=== PATIENT | male | born 1990 | race Caucasian/White ===

== ENCOUNTER 2018-01-17 13:15 | Emergency (ER) | payer OTHER ==
[2018-01-17 13:39] VITALS: TEMP 98.5; BMI 29.8
[2018-01-17] MEDS ORDERED: CEPHALEXIN MONOHYDRATE 500 MG CAPSULE (UD) PO ONE (14:05)
[2018-01-17] MEDS ORDERED: ACETAMINOPHEN 500 MG TABLET (FP) PO ONE (14:05)
[2018-01-17] MEDS ORDERED: SULFAMETHOXAZOLE/TRIMETHOPRIM 800MG/160MG D.S. TABLET PO ONE (14:06)
[2018-01-17] MEDS ORDERED: SULFAMETHOXAZOLE/TRIMETHOPRIM 800MG/160MG D.S. TABLET ONE (14:08)
[2018-01-17] MEDS ORDERED: CEPHALEXIN MONOHYDRATE 500 MG CAPSULE (UD) ONE (14:09)
[2018-01-17] MEDS ORDERED: ACETAMINOPHEN 500 MG TABLET (FP) ONE (14:09)
--- NOTE | 2018-01-17 14:09 | PDOC ---
History of Present Illness - General Chief Complaint: Abscess Boil Stated Complaint: LEFT CHEST ABSCESS Time Seen by Provider: 01/17/18 13:37 - History of Present Illness Initial Comments: 01/17/18 14:23 27yo male with hx of anxiety and depression and add presents to the ED ambulatory c/o an abscess to L chest wall. Pt states he shaves his chest and noticed the redness and swelling this AM. Pt denies f/c. No enlarged lymph nodes. No chest pain, no sob. No abd pain. No n/v/d. No dysuria. C/o itching to L hand along the pinky. Pt denies paresthesias or tingling. No trauma. No swelling or redness. No other complaints. Pmhx: anxiety, depression, add pshx: denies allergies: nkda Past History - Past Medical History Allergies/Adverse Reactions: Allergies Allergy/AdvReac Type Severity Reaction Status Date / Time No Known Allergies Allergy Verified 11/18/15 11:40 Home Medications: Ambulatory Orders Dextroamphetamine/Amphetamine [Adderall Xr 30 mg Capsule] 30 mg PO BID 06/23/15 Cephalexin Monohydrate [Keflex -] 500 mg PO Q6H #40 capsule 01/17/18 Clonazepam [Klonopin] 1 mg PO BID PRN 01/17/18 Fluoxetine HCl [Prozac] 40 mg PO HS 01/17/18 Sulfamethoxazole/Trimethoprim [Bactrim Ds -] 2 tab PO BID #40 tablet 01/17/18 COPD: No Psychiatric Problems: Yes (ANXIETY) - Surgical History Abdominal Surgery: Yes (hernia age 4) - Immunization History Td Vaccination: No Immunization Up to Date: Yes - Suicide/Smoking/Psychosocial Hx Smoking Status: Yes Smoking History: Current every day smoker Have you smoked in the past 12 months: Yes Number of Cigarettes Smoked Daily: 0 If you are a former smoker, when did you quit?: 1 yr Information on smoking cessation initiated: Yes 'Breaking Loose' booklet given: 02/20/14 Hx Alcohol Use: No Drug/Substance Use Hx: No Substance Use Type: None Review of Systems - Review of Systems Able to Perform ROS?: Yes Is the patient limited Maltese proficient: No Constitutional: No: Chills, Fever HEENTM: No: Eye Pain, Nose Pain, Nose Congestion, Throat Pain Respiratory: No: Cough, Shortness of Breath Cardiac (ROS): Yes: Other (chest wall redness and induration). No: Chest Pain, Edema, Lightheadedness, Palpitations ABD/GI: No: Diarrhea, Nausea, Vomiting, Abdominal cramping : No: Burning, Dysuria Musculoskeletal: No: Back Pain, Neck Pain Integumentary: Yes: Erythema (L chest wall erythema/induration) Neurological: No: Headache, Numbness, Paresthesia, Seizure, Tingling, Weakness, Ataxia Psychiatric: Yes: Anxiety. No: Depression All Other Systems: Reviewed and Negative *Physical Exam - Vital Signs Last Vital Signs Temp Pulse Resp BP Pulse Ox 98.5 F 100 H 18 156/112 H 100 01/17/18 13:31 01/17/18 13:31 01/17/18 13:31 01/17/18 13:31 01/17/18 13:31 - Physical Exam General Appearance: Yes: Nourished, Appropriately Dressed, Other (anxious) HEENT: positive: EOMI, Normal ENT Inspection, Normal Voice Neck: positive: Supple Respiratory/Chest: positive: Lungs Clear, Normal Breath Sounds, Other (L chest wall erythema and small area of induration - overall size is 4x6cm, indurated area is about quarter size, no fluctuance). negative: Respiratory Distress Cardiovascular: positive: Regular Rhythm, S1, S2, Tachycardia, Other (anxious) Gastrointestinal/Abdominal: positive: Normal Bowel Sounds, Flat, Soft. negative : Tender, Guarding, Rebound, Tenderness Musculoskeletal: positive: Normal Inspection, Other (negative tinels and finklesteins, brisk cap refill, pulses intact, sensation intact, muscle strength intact to hands). negative: CVA Tenderness Extremity: positive: Normal Capillary Refill, Normal Inspection, Normal Range of Motion, Other (dry skin to hands). negative: Calf Tenderness Integumentary: positive: Erythema (L chest wall with area of induration - no fluctuance, no crepitus) Neurologic: positive: Fully Oriented, Alert, Motor Strength 5/5, Other (anxious) Medical Decision Making - Medical Decision Making 01/17/18 14:39 a/p: 27yo male presents with L chest wall cellulitis -most likely from shaving -area of induration without fluctuance -dry skin to L hand -area of erythema was outlined with a skin marking pen, will give keflex and bactrim, recommend warm compresses to the area -[facility] send rx [facility] -discussed all reasons to return to the ED and need for a wound check in 2 days. discussed return to the ED if the area of erythema expands outside the marked area -discussed f/c and return to the ED -will give outpt abx and follow up with his PMD -answered all questions, pt and mother at the bedside verbalize understanding of all instructions repeat bp improved 01/17/18 14:41 pt very anxious in the ED *DC/Admit/Observation/Transfer Diagnosis at time of Disposition: Cellulitis of chest wall - Discharge Dispostion Disposition: HOME Condition at time of disposition: Stable Decision to Admit order: No - Prescriptions Prescriptions: Cephalexin Monohydrate [Keflex -] 500 mg PO Q6H #40 capsule Sulfamethoxazole/Trimethoprim [Bactrim Ds -] 2 tab PO BID #40 tablet - Referrals Referrals: Monroe Garduno MD [Primary Care Provider] - - Patient Instructions Printed Discharge Instructions: DI for Cellulitis -- Adult Additional Instructions: Please apply warm compresses to the chest wall. If you develop fevers or chills please return to the ED. Please take all antibiotics as prescribed. Please make a follow up appointment with your PMD for a wound check in 2 days. If the cellulitis extends outside the outline area please return to the ED. - Post Discharge Activity
[2018-01-17 14:21] VITALS: BP 147/100; PULSE 106
== END 2018-01-17 14:20 | disposition home or self-care (01) ==
LOC: FER 13:15
DX: L02.213 Cutaneous abscess of chest wall (principal); F17.210 Nicotine dependence, cigarettes, uncomplicated; F90.9 Attention-deficit hyperactivity disorder, unspecified type; F41.9 Anxiety disorder, unspecified; F32.9 Major depressive disorder, single episode, unspecified
CPT/HCPCS: 99282-25

== ENCOUNTER 2018-12-20 15:29 | Emergency (ER) | payer OTHER ==
[2018-12-20 15:43] VITALS: BP 134/92; PULSE 100; TEMP 98.5; BMI 31.2
[2018-12-20 16:45] LABS: BASO % 0.5 % (0-2.0); EOS % 2.7 % (0-4.5); HEMATOCRIT 52.6 % (35.4-49); HEMOGLOBIN 17.7 GM/dl (11.7-16.9); LYMPH % 31.5 % (8-40); MCH 30.6 pg (25.7-33.7); MCHC 33.6 g/dl (32.0-35.9); MEAN CELL VOLUME 91.1 fl (80-96); MEAN PLT VOLUME 8.4 fl (7.5-11.1); MONO % 6.4 % (3.8-10.2); NEUT % 58.9 % (42.8-82.8); PLATELET COUNT 292 K/MM3 (134-434); RBC 5.77 M/mm3 (4.00-5.60); RDW 13.1 % (11.9-15.9)
[2018-12-20 16:51] LABS: ALBUMIN 4.3 g/dl (3.4-5.0); BILIRUBIN,TOTAL 0.6 mg/dl (0.2-1); CALCIUM 8.5 mg/dl (8.5-10); POTASSIUM 4.5 mmol/L (3.5-5.1); TOT PROT 7.5 g/dl (6.4-8.2)
--- NOTE | 2018-12-20 17:14 | PDOC ---
Documentation entered by Jeremiah Branch SCRIBE, acting as scribe for Cheo Hines MD. Cheo Hines MD: This documentation has been prepared by the Jose Carlos cartagena Aiswarya, SCRIBE, under my direction and personally reviewed by me in its entirety. I confirm that the documentation accurately reflects all work, treatment, procedures, and medical decision making performed by me. History of Present Illness - General Chief Complaint: Difficulty with Vision Stated Complaint: BLURRY VISION,JERKS ON FACE FOR A FEW EEKS Time Seen by Provider: 12/20/18 15:41 - History of Present Illness Initial Comments: 12/20/18 17:19 The patient is a 28 year old male, with a significant PMH of anxiety, depression, ADHD, who presents to the emergency department with frequent blurry visions and headaches that began approximately 3 weeks ago. The patient states he endorses associated symptoms of lightheadedness, fatigue, blurry vision especially when looking at a screen. He also notes varied stages of folliculitis on the upper extremity. The patient denies chest pain, shortness of breath, headache and dizziness. Denies fever, chills, nausea, vomit, diarrhea and constipation. Denies dysuria, frequency, urgency and hematuria. Allergies: NKDA Past surgical history: hernia Social history: Current everyday smoker PCP: None reported Past History - Past Medical History Allergies/Adverse Reactions: Allergies Allergy/AdvReac Type Severity Reaction Status Date / Time No Known Allergies Allergy Verified 12/20/18 15:44 Home Medications: Ambulatory Orders Dextroamphetamine/Amphetamine [Adderall Xr 30 mg Capsule] 30 mg PO BID 06/23/15 Alprazolam [Xanax] 1 mg PO BID 12/20/18 Sertraline HCl [Zoloft -] 50 mg PO DAILY 12/20/18 COPD: No Psychiatric Problems: Yes (ANXIETY,depression,ADHD,OCD,panic attack) - Surgical History Abdominal Surgery: Yes (hernia) - Immunization History Td Vaccination: No Immunization Up to Date: Yes - Psycho Social/Smoking Cessation Hx Smoking Status: Yes Smoking History: Current every day smoker Have you smoked in the past 12 months: Yes Number of Cigarettes Smoked Daily: 0 If you are a former smoker, when did you quit?: 1 yr Information on smoking cessation initiated: Yes 'Breaking Loose' booklet given: 12/23/14 Hx Alcohol Use: No Drug/Substance Use Hx: No Substance Use Type: None Review of Systems - Review of Systems Able to Perform ROS?: Yes Comments:: 12/20/18 17:20 GENERAL/CONSTITUTIONAL: No fever or chills. HEAD, EYES, EARS, NOSE AND THROAT: No change in vision. No ear pain or discharge. No sore throat. CARDIOVASCULAR: No chest pain or shortness of breath. RESPIRATORY: No cough, wheezing, or hemoptysis. GASTROINTESTINAL: No nausea, vomiting, diarrhea or constipation. GENITOURINARY: No dysuria, frequency, or change in urination. MUSCULOSKELETAL: No joint or muscle swelling or pain. No neck or back pain. SKIN: No rash NEUROLOGIC: No, vertigo, loss of consciousness, or change in strength/sensation. ENDOCRINE: No increased thirst. No abnormal weight change. HEMATOLOGIC/LYMPHATIC: No anemia, easy bleeding, or history of blood clots. ALLERGIC/IMMUNOLOGIC: No hives or skin allergy. Constitutional: No: Chills, Fever HEENTM: No: Double Vision, Throat Swelling, Difficulty Swallowing Respiratory: No: Cough, Shortness of Breath Cardiac (ROS): No: Chest Pain, Edema, Lightheadedness, Syncope ABD/GI: No: Diarrhea, Vomiting Neurological: Yes: Headache. No: Paresthesia, Weakness, Ataxia Psychiatric: Yes: Anxiety, Depression All Other Systems: Reviewed and Negative *Physical Exam - Vital Signs Last Vital Signs Temp Pulse Resp BP Pulse Ox 98.5 F 100 H 19 134/92 100 12/20/18 15:31 12/20/18 15:31 12/20/18 15:31 12/20/18 15:31 12/20/18 15:31 - Physical Exam Comments: 12/20/18 17:20 GENERAL: The patient is awake, alert, and fully oriented, in no acute distress. HEAD: Normal with no signs of trauma. EYES: Pupils equal, round and reactive to light, extraocular movements intact, sclera anicteric, conjunctiva clear with no pallor. ENT: Ears normal, nares patent, oropharynx clear without exudates. Moist mucous membranes. NECK: Normal range of motion, supple without lymphadenopathy, JVD, or masses. LUNGS: Breath sounds equal, clear to auscultation bilaterally. No wheeze/ crackles. HEART: Regular rate and rhythm, normal S1 and S2 without murmur or rub. EXTREMITIES: Normal range of motion, no edema. No clubbing or cyanosis. No cords, erythema, or tenderness. PSYCH: +anxious. No pressured speech. SKIN: +Scattered 1 mm follicitis of varied stages without cellulitis NEURO: Mental status: The patient is alert and oriented x3. Cranial nerves: Cranial nerves II through XII are intact Motor: The upper extremities are 5 over 5 in all muscle groups. The lower extremities are 5 over 5 in all muscle groups. No pronator drift. Sensation: Sensation is intact to light touch throughout. Cerebellar: [id number] is normal in both upper extremities. Heel-knee- crouch is normal in both lower extremities. Reflexes: 2+ and symmetric in the upper and lower extremities. Gait: Normal. Heel and toe walking are normal. Tandem gait is normal. Heart Score/ECG Review #1 ECG reviewed & interpreted by me at: 16:35 General ECG Interpretation: Sinus Rhythm, Normal Rate (90), Normal Intervals ( qtc 423), No acute ischemic changes ED Treatment Course - LABORATORY CBC & Chemistry Diagram: 12/20/18 16:20 12/20/18 16:20 - ADDITIONAL ORDERS Additional order review: 12/20/18 16:20 RBC 5.77 H MCV 91.1 MCHC 33.6 RDW 13.1 MPV 8.4 Neutrophils % 58.9 Lymphocytes % 31.5 Monocytes % 6.4 Eosinophils % 2.7 Basophils % 0.5 - RADIOLOGY Radiology Studies Ordered: Category Date Time Status HEAD CT WITHOUT CONTRAST [CT] Stat CT Scan 12/20/18 16:03 Taken Medical Decision Making - Medical Decision Making 12/20/18 16:52 A portion of this note was documented by scribe services under my direction. I have reviewed the details of the note, within reason, and agree with the documentation with the following case summary and management plan written by me. 28-year-old male with history of anxiety and depression, possible narcolepsy in the past maintained on Zoloft (recently switched from Prozac 4 months ago) and Adderall presents now with about 1 month of fleeting several second episodes of blurry vision while staring at a screen followed by a muscle twitch and mild periorbital headache. The episodes occur several times a day, mostly at work, never associated with seizure activity or actual syncope. no acute depression ideations or hallucinations. denies drugs/intox. admits to self-lowering his adderall dose to twice daily instead of tid. vss exam nonfocal 28-year-old male with nonspecific muscle twitches, vague headaches without red flags on history or physical exam. Question whether he has underlying muscular tics that are undertreated by his self lowered Adderall dose, question side effects from medications, presentation is not consistent with seizures or syncope. Given his complaint of headache and increased fatigue, check basic labs and head CT. CT head normal EKG normal Labs including CBC and chemistries are within normal limits, TSH sent and pending Stable for discharge, family at bedside, understands return criteria. He will follow-up with his psychiatrist, has a PCP that he can schedule an appointment with. Discharge - Discharge Information Problems reviewed: Yes Clinical Impression/Diagnosis: Muscle twitch, Anxiety Condition: Stable Disposition: HOME - Follow up/Referral - Patient Discharge Instructions Patient Printed Discharge Instructions: DI for Anxiety -- Adult Additional Instructions: Activity as tolerated. Stay hydrated. Blood tests, an EKG, and a CT head showed no acute abnormalities today. A thyroid test is still pending but should be resulted by . Continue your medications as previously prescribed by your physician. Speak to your psychiatrist about whether dosing or medication adjustments are needed. You should follow up with your primary doctor as soon as possible regarding today's emergency department visit. Return to the emergency department for any new or concerning symptoms, particularly passing out, seizure activity, persistent or intolerable headaches , fever/chills, severe depression or anxiety. - Post Discharge Activity
--- NOTE | 2018-12-21 09:43 | EKG ---
Test Reason : Blood Pressure : / mmHG Vent. Rate : 090 BPM Atrial Rate : 090 BPM P-R Int : 142 ms QRS Dur : 092 ms QT Int : 346 ms P-R-T Axes : 041 017 021 degrees QTc Int : 423 ms NORMAL SINUS RHYTHM NORMAL ECG WHEN COMPARED WITH ECG OF 01-AUG-2015 02:41, NO SIGNIFICANT CHANGE WAS FOUND Confirmed by MATTEO SUAREZ MD ([id number]) on 12/21/2018 9:43:16 AM Referred By: DR ALSTON Confirmed By:MATTEO SUAREZ MD
== END 2018-12-20 17:23 | disposition home or self-care (01) ==
LOC: FER 15:29
DX: R25.3 Fasciculation (principal); F41.9 Anxiety disorder, unspecified
CPT/HCPCS: 36415; 70450-TC; 80053; 84443; 85025; 93005; 99283-25

== ENCOUNTER 2019-10-29 12:54 | Emergency (ER) | payer OTHER ==
[2019-10-29 13:01] VITALS: BP 138/91; PULSE 104; TEMP 98.1; BMI 29.8
--- NOTE | 2019-10-29 13:01 | PDOC ---
History of Present Illness - General Chief Complaint: Redness To Affected Area Stated Complaint: right side of nose pimple pop Time Seen by Provider: 10/29/19 12:58 History Source: Patient Exam Limitations: No Limitations - History of Present Illness Initial Comments: 10/29/19 13:00 HPI 29 year old male, with a significant PMH of anxiety, depression, ADHD, who presents to the emergency department with right facial redness and swelling after popping pimple on right side of his nose. he admits to having long standing facial redness and bad habit of popping pimples. there was pimple head there yesterday, which he popped and subsequently pus came out of his nose. Immediate relief. no additional analgesia needed. Denies fever, chills, chest pain, SOB, sore throat, ear pain/eye pain, visual or hearing disturbances, palpitation, dizziness, weakness, N, V, D, abdominal pain, bladder and bowel problems, focal weakness/paresthesias, leg swelling/pain, rash. Allergies: None Past Medical History/PSH: as above Social history: Lives with family. No tobacco, ETOH or drug use. Meds: as documented in EMR Family history: noncontributory Review of systems Constitutional: no fevers or chills. No weakness HEENT: no headache or dizziness. No congestion. No visual/hearing disturbances. no sore throat. no eye pain or redness. no ear pain. no epistaxis. CVS: no cp or syncope. Resp: no sob. No cough. Gastrointestinal: no abdominal pain, nausea, vomiting, diarrhea. MUSCULOSKELETAL: No joint pain and swelling. No neck or back pain. SKIN: +pimple, facial redness and swelling, no discharge, no rash. No wounds. Hematologic: no easy bruising/bleeding. NEUROLOGIC: No headache, dizziness, LOC or altered mental status. No weakness, numbness or tingling. Psych: +history of anxiety, depression and ADHD Allergic/Immunologic: no allergies All other systems reviewed and negative, or as documented in HPI. Physical exam General: Well appearing, awake and alert, NAD. HEENT: NCAT, PERRL, EOMI, clear conjunctiva, anicteric, moist mucus membranes, clear oropharynx, no oral lesions.. +right cheek/facial erythema, not raised, nontender, no warmth. faint popped pimple at the nasolabial edge nares clear and patent. airway patent no sinus tenderness to palpation. Neck: neck supple, FROM Resp: CTAB, normal and even respirations, no respiratory distress CVS: RRR, no murmurs, 2+ peripheral pulses throughout, no peripheral edema Abdomen: soft, NTND, no rebound or guarding. MSK: no edema, HALL x4, ROM intact. No clubbing or cyanosis. normal bulk and tone. Neuro: alert, oriented appropriately; no focal neurologic deficits, CN II to XII grossly intact, speech clear Psych: Calm and cooperative Skin: warm and well perfused, cap refill <2 sec, normal color, no rash or skin discoloration. +right facial /cheek erythema, nontender. small popped pimple residue on the nasolabial fold. 10/29/19 13:15 10/29/19 13:20 10/29/19 13:52 Past History - Medical History Allergies/Adverse Reactions: Allergies Allergy/AdvReac Type Severity Reaction Status Date / Time No Known Allergies Allergy Verified 12/20/18 15:44 Home Medications: Ambulatory Orders Dextroamphetamine/Amphetamine [Adderall Xr 30 mg Capsule] 30 mg PO BID 06/23/15 Alprazolam [Xanax] 1 mg PO BID 12/20/18 Sertraline HCl [Zoloft -] 50 mg PO DAILY 12/20/18 Cephalexin Monohydrate [Keflex -] 500 mg PO Q8H #20 capsule 10/29/19 Mupirocin Ointment [Bactroban 2% Ointment -] 1 applic TP TID 7 Days #1 tube 10/29/19 COPD: No Psychiatric Problems: Yes (ANXIETY,depression,ADHD,OCD,panic attack) - Surgical History Abdominal Surgery: Yes (hernia) - Immunization History Td Vaccination: No Immunization Up to Date: Yes - Psycho-Social/Smoking History Smoking Status: Yes Smoking History: Current every day smoker Have you smoked in the past 12 months: Yes Number of Cigarettes Smoked Daily: 0 If you are a former smoker, when did you quit?: 1 yr 'Breaking Loose' booklet given: 02/20/14 Medical Decision Making - Medical Decision Making 10/29/19 13:18 Vital Signs Temp Pulse Resp BP Pulse Ox 98.1 F 104 H 18 138/91 100 10/29/19 12:56 10/29/19 12:56 10/29/19 12:56 10/29/19 12:56 10/29/19 12:56 vitals with mild tachy, anxious no fever, no systemic findings. normal respirations. no e/o to suggest acute sinusitis. no e/o orbital cellulitis doubt cavernous sinus thrombosis neuro intact CN II to XII grossly intact, speech clear. no further I&D needed. folliculitis treatment no e/o erysipelas mupirocin topically and keflex tid x 7 days monitor for worsening symptoms/s/s infection told to avoid popping pimples and touching the face for risk of spreading infection. pt and family verbalized understanding of impression and plan, agreeable 10/29/19 13:54 10/29/19 13:55 10/29/19 13:55 Discharge - Discharge Information Problems reviewed: Yes Clinical Impression/Diagnosis: Folliculitis, Facial cellulitis Condition: Stable Disposition: HOME - Admission No - Additional Discharge Information Prescriptions: Mupirocin Ointment [Bactroban 2% Ointment -] 1 applic TP TID 7 Days #1 tube Cephalexin Monohydrate [Keflex -] 500 mg PO Q8H #20 capsule - Follow up/Referral Referrals: [facility] [Provider Group] [facility] [Provider Group] - Patient Discharge Instructions Patient Printed Discharge Instructions: DI for Cellulitis -- Adult, DI for Folliculitis Additional Instructions: 1) Please follow-up with your primary care doctor in the next 1-2 days. Please call tomorrow for for any urgent issues. you most likely have a folliculitis/cellulitis of your face. this is to be treated with antibiotics 2) You were given a copy of the tests performed today. Please bring the results with you and review them with your primary care doctor. 3) If you have any worsening of symptoms or any other concerns please return to the ED immediately. Return if worsening symptoms including fevers, headache, vomiting, visual or hearing disturbances, eye pain/vision loss, bleeding, difficulty seeing/opening or closing eyes, throat discomfort, abdominal pain, chest pain, shortness of breath, syncope, dehydration, inability to take things by mouth/vomiting, altered mental status, or worsening concerning symptoms. 4) Please continue taking your home medications as directed. your medications on discharge include Keflex three times a day x 1 week and topical mupirocin three times a day to the face/affected side.. side effects may include upset stomach, abdominal pain, vomiting, or diarrhea. do not drink alcohol with your medications. Stay well hydrated and rest adequately. Make an appointment. If you cannot follow-up with your primary care doctor please return to the ED - Post Discharge Activity
[2019-10-29] MEDS ORDERED: CEPHALEXIN MONOHYDRATE 500 MG CAPSULE (UD) PO ONE (13:20)
[2019-10-29] MEDS ORDERED: CEPHALEXIN MONOHYDRATE 500 MG CAPSULE (UD) ONE (13:22)
[2019-11-01] MEDS ORDERED: LOCK ITEM NR ONE (07:53)
[2019-11-08] MEDS ORDERED: LOCK ITEM NR ONE (08:16)
== END 2019-10-29 13:30 | disposition home or self-care (01) ==
LOC: FER 12:54
DX: L66.2 Folliculitis decalvans (principal); L03.211 Cellulitis of face
CPT/HCPCS: 99283-25

== ENCOUNTER 2019-10-30 09:04 | Emergency (ER) | payer OTHER ==
[2019-10-30 09:12] VITALS: BP 154/89; PULSE 99; TEMP 97.5; BMI 29.8
--- NOTE | 2019-10-30 09:24 | PDOC ---
History of Present Illness - General Chief Complaint: Redness To Affected Area Stated Complaint: REDNESS TO SIDE OF NOSE, "PUS FR EYES/NOSE" Time Seen by Provider: 10/30/19 09:21 - History of Present Illness Initial Comments: HPI: 29yo M with PMH of anxiety, depression, ADHD presenting with skin complaint. Yesterday, patient noticed a pimple along his right nasolabial fold and squeezed the area with his fingers. Since that time he has had redness and tenderness in the area of the right side of his face next to his nose. Patient reports he was seen at this ED yesterday for same complaint, but presents again today because he noticed "pus" draining from the area, as well as from his eye. Patient also reports a strange taste in his mouth such that he believes pus may have drained from that area as well. The pus is yellow and watery. Has not yet picked up his prescription from the pharmacy because it was closed. Denies trouble swallowing or sore throat. No congestion or drainage from the nostril. Patient reports feeling mildly anxious which he attributes to his history of anxiety. Denies fever or chills. PCP: none ROS: Constitutional: no fever, no chills HEENT: no throat pain, no dysphagia Cardiovascular: no chest pain, no palpitations Respiratory: no cough, no shortness of breath Gastrointestinal: no abdominal pain, no nausea Genitourinary: no dysuria, no hematuria Musculoskeletal: no myalgia, no arthralgia Skin: +rash, +discharge Neurologic: no headache, no weakness Psych: no agitation, +anxiety PE: General: Awake, alert, and fully oriented, in no acute distress Head: No signs of trauma Eyes: EOMI, sclera anicteric ENT: Moist mucus membranes, uvula midline, no oral mass/lesion Neck: Normal ROM, supple Lungs: Lungs clear, Normal breath sounds Cardio: Regular rhythm, S1 and S2 present Abdomen: Soft, nontender Extremities: Normal range of motion, Distal pulses present Skin: Area of erythema along right nasiolabial fold, mildly tender, with no fluctuance. unable to express any discharge upon palpation Neurologic: Cranial nerves II through XII grossly intact. Normal speech ED Course/MDM: DDX including but not limited to cellulitis, abscess, sinusitis, inflammation Clinically, the area is consistent with an early celluitis: mildly erythematous, tender Doubt abscess as there is no fluctuance appreciated Significant discharge is not appreciated on exam, low suspicion for sinusitis Patient only took one dose of abx, so this is not failed outpatient therapy To continue and finish course of keflex Patient requested prescription to be sent to different pharmacy; sent accordingly Referral to primary care physician as patient does not have one Return precautions Stable for discharge 10/30/19 09:47 Past History - Medical History Allergies/Adverse Reactions: Allergies Allergy/AdvReac Type Severity Reaction Status Date / Time No Known Allergies Allergy Verified 10/30/19 09:06 Home Medications: Ambulatory Orders Dextroamphetamine/Amphetamine [Adderall Xr 30 mg Capsule] 30 mg PO BID 06/23/15 Alprazolam [Xanax] 2 mg PO BID 12/20/18 Cephalexin Monohydrate [Keflex -] 500 mg PO Q8H #20 capsule 10/29/19 Mupirocin Ointment [Bactroban 2% Ointment -] 1 applic TP TID 7 Days #1 tube 10/29/19 Cephalexin Monohydrate [Keflex -] 500 mg PO Q8H #20 capsule 10/30/19 Mupirocin Ointment [Bactroban 2% Ointment -] 1 applic TP TID #1 tube 10/30/19 COPD: No Psychiatric Problems: Yes (ANXIETY,depression,ADHD,OCD,panic attack) - Surgical History Abdominal Surgery: Yes (hernia) - Immunization History Td Vaccination: No Immunization Up to Date: Yes - Psycho-Social/Smoking History Smoking Status: Yes Smoking History: Never smoked Have you smoked in the past 12 months: No Number of Cigarettes Smoked Daily: 0 If you are a former smoker, when did you quit?: 1 yr Information on smoking cessation initiated: Yes 'Breaking Loose' booklet given: 02/20/14 - Substance Abuse Hx (Audit-C & DAST Scrn) How often the patient has a drink containing alcohol: Never Score: In Men: 4 or > Positive; In Women: 3 or > Positive: 0 Screen Result (Pos requires Nsg. Audit-10AR): Negative In the last yr the pt used illegal drug/Rx for NonMed reason: No Score: Yes response is considered Positive: 0 Screen Result (Positive result requires Nsg. DAST-10): Negative *Physical Exam - Vital Signs Last Vital Signs Temp Pulse Resp BP Pulse Ox 97.5 F L 99 H 18 154/89 98 10/30/19 09:05 10/30/19 09:05 10/30/19 09:05 10/30/19 09:05 10/30/19 09:05 Discharge - Discharge Information Problems reviewed: Yes Clinical Impression/Diagnosis: Cellulitis Qualifiers: Site of cellulitis: face Qualified Code(s): L03.211 - Cellulitis of face Condition: Stable Disposition: HOME - Additional Discharge Information Prescriptions: Mupirocin Ointment [Bactroban 2% Ointment -] 1 applic TP TID #1 tube Cephalexin Monohydrate [Keflex -] 500 mg PO Q8H #20 capsule - Follow up/Referral Referrals: [facility] [place] [facility] [place] [facility] [Provider Group] - Patient Discharge Instructions Patient Printed Discharge Instructions: DI for Cellulitis -- Adult Additional Instructions: You came to the emergency department because of an infection on the right side of your face. Prescriptions sent to your pharmacy. Take as instructed. Follow-up with a primary care provider this week to discuss this ED visit and to further evaluate your symptoms. Your workup is not complete until you do so. You have been referred to the [facility] in case you do not have a primary care doctor. Call and make an appointment at the number provided. Immediate medical attention is required if you have : fevers/chills, redness or hardness around the wound, pain or tenderness, red streaks, fever or chills. If you think you are having an emergency, call for emergency medical services or present to the emergency department right away. - Post Discharge Activity
--- NOTE | 2019-10-30 09:41 | PDOC ---
Attending Attestation - Resident Resident Name: Catie Gauthier - ED Attending Attestation I have performed the following: I have examined & evaluated the patient, The case was reviewed & discussed with the resident, I agree w/resident's findings & plan, Exceptions are as noted - HPI HPI: 10/30/19 09:40 29y M presnting with complaint of facial redness/swelling on right side of his nose. pt had a pimple that he popped yesterday, and noticed some redness/flaking skin - he had come to the ED for evaluation and was given rx for abx and mupruicin, however he was unable to fill the rx. he comes in today due to seeing some yellowish discharge. denies any significant pain, fever/chills, vision changes/eye pain, difficulty swallowing. - Physicial Exam PE: 10/30/19 09:56 Exam: No acute distress ENT: EOMI, mild erythema on R nasolabial fold without induration/tenderness/fluctuance, +flaking skin, normal voice/jaw movement, no discharge appreicated - Medical Decision Making 10/30/19 09:56 suspect irritation with mild erythema, possibly early cellulitis vs impetigo pt has rx for keflex / mupricin will dc with pmd fu, return precaution swere discussed for worsening redness or systemic symtmos or other concerns. Discharge - Discharge Information Problems reviewed: Yes Clinical Impression/Diagnosis: Cellulitis Qualifiers: Site of cellulitis: face Qualified Code(s): L03.211 - Cellulitis of face Condition: Stable Disposition: HOME - Additional Discharge Information Prescriptions: Mupirocin Ointment [Bactroban 2% Ointment -] 1 applic TP TID #1 tube Cephalexin Monohydrate [Keflex -] 500 mg PO Q8H #20 capsule - Follow up/Referral [place] [facility] [place] [facility] [place]] - Patient Discharge Instructions Patient Printed Discharge Instructions: DI for Cellulitis -- Adult Additional Instructions: You came to the emergency department because of an infection on the right side of your face. Prescriptions sent to your pharmacy. Take as instructed. Follow-up with a primary care provider this week to discuss this ED visit and to further evaluate your symptoms. Your workup is not complete until you do so. You have been referred to the [facility] in case you do not have a primary care doctor. Call and make an appointment at the number provided. Immediate medical attention is required if you have : fevers/chills, redness or hardness around the wound, pain or tenderness, red streaks, fever or chills. If you think you are having an emergency, call for emergency medical services or present to the emergency department right away. - Post Discharge Activity
== END 2019-10-30 10:05 | disposition home or self-care (01) ==
LOC: FER 09:04
DX: L03.211 Cellulitis of face (principal)
CPT/HCPCS: 99282-25

== ENCOUNTER 2019-11-13 12:38 | Emergency (ER) | payer OTHER ==
[2019-11-13 12:45] VITALS: BP 135/84; PULSE 107; TEMP 98; BMI 29.9
[2019-11-13] MEDS ORDERED: ACETAMINOPHEN 325 MG TABLET (FP) PO ONE (13:02)
--- NOTE | 2019-11-13 13:03 | PDOC ---
History of Present Illness - General Chief Complaint: Chest Pain Stated Complaint: CHEST "SPASM" - History of Present Illness Initial Comments: 11/13/19 13:03 29 year old man with a history of anxiety and ADHD who presents with chest "spasms" that have been occurring since this morning. He denies chest pain or shortness of breath. Denies any family history of early heart attack or sudden cardiac . He states that he took his adderall and drank an energy drink this morning. He endorses a history of fast heart rates. ROS GENERAL/CONSTITUTIONAL: No fever or chills. No weakness. HEAD, EYES, EARS, NOSE AND THROAT: No change in vision. No ear pain or discharge. No sore throat. CARDIOVASCULAR: No chest pain or shortness of breath + chest " spasm" RESPIRATORY: No cough, wheezing, or hemoptysis. GASTROINTESTINAL: No nausea, vomiting, diarrhea or constipation. GENITOURINARY: No dysuria, frequency, or change in urination. MUSCULOSKELETAL: No joint or muscle swelling or pain. No neck or back pain. SKIN: No rash NEUROLOGIC: No headache, vertigo, loss of consciousness, or change in strength/sensation. ENDOCRINE: No increased thirst. No abnormal weight change HEMATOLOGIC/LYMPHATIC: No anemia, easy bleeding, or history of blood clots. ALLERGIC/IMMUNOLOGIC: No hives or skin allergy. PE GENERAL: Awake, alert, and fully oriented, in no acute distress HEAD: No signs of trauma, normocephalic, atraumatic EYES: EOMI, sclera anicteric, conjunctiva clear ENT: oropharynx clear without exudates. Moist mucosa NECK: Normal ROM, supple LUNGS: No distress, speaks full sentences, clear to auscultation bilaterally HEART: Regular rate and rhythm, normal S1 and S2, no murmurs, rubs or gallops, peripheral pulses normal and equal bilaterally. ABDOMEN: Soft, nontender, No guarding, no rebound. No masses EXTREMITIES : Normal inspection, Normal range of motion, no edema. No clubbing or cyanosis. NEUROLOGICAL: Cranial nerves II through XII grossly intact. Normal speech, normal gait, no focal sensorimotor deficits SKIN: Warm, Dry, normal turgor, no rashes or lesions noted Assessment and Plan 29 year old man with a history of anxiety and ADHD who presents with chest "spasms" that have been occurring since this morning. Less consistent with ACS, if EKG wnl will pursue bloodwork. EKG sinus at 116bpm pain control Patient feels reassured and desires to go home HR decreased to low 100s D/C w/ PCP f/u Kassi Bruno, PGY3 Emergency Medicine Past History - Medical History Allergies/Adverse Reactions: Allergies Allergy/AdvReac Type Severity Reaction Status Date / Time No Known Allergies Allergy Verified 11/13/19 12:39 Home Medications: Ambulatory Orders Dextroamphetamine/Amphetamine [Adderall Xr 30 mg Capsule] 30 mg PO BID 06/23/15 Alprazolam [Xanax] 2 mg PO BID 12/20/18 COPD: No Psychiatric Problems: Yes (ANXIETY,depression,ADHD,OCD,panic attack) - Surgical History Abdominal Surgery: Yes (hernia) - Immunization History Td Vaccination: No Immunization Up to Date: Yes - Psycho-Social/Smoking History Smoking Status: Yes Smoking History: Never smoked Have you smoked in the past 12 months: No Number of Cigarettes Smoked Daily: 0 If you are a former smoker, when did you quit?: 1 yr 'Breaking Loose' booklet given: 02/20/14 Discharge - Discharge Information Problems reviewed: Yes Clinical Impression/Diagnosis: Atypical chest pain Condition: Stable Disposition: HOME - Follow up/Referral - Patient Discharge Instructions Patient Printed Discharge Instructions: DI for Atypical Chest Pain - Post Discharge Activity
[2019-11-13] MEDS ORDERED: ACETAMINOPHEN 325 MG TABLET (FP) ONE (13:05)
--- NOTE | 2019-11-13 13:22 | PDOC ---
Attending Attestation - Resident Resident Name: MayankArpita akbarie - ED Attending Attestation I have performed the following: I have examined & evaluated the patient, The case was reviewed & discussed with the resident, I agree w/resident's findings & plan, Exceptions are as noted - HPI HPI: 11/13/19 13:14 29 yo M h/o anxiety and ADHD on adderall p/w sensation of muscle spasm/twitch in chest since this morning. Denies SOB or chest pain. Reports the sensation is not really painful but more of a discomfort. Denies FH of sudden cardiac . Denies LE swelling. Reports he took his adderall this morning and also drank an energy drink. States he has a h/o fast HR and typically his HR is in the 110's. - Physicial Exam PE: 11/13/19 13:18 General: well appearing, NAD, comfortable appearing Chest: CTAB, good air entry, no wheezes rales or rhonchi, no chest wall tenderness CVS: + s1 s2, tachy to low 100's - Medical Decision Making 11/13/19 13:19 29 yo M with atypical chest spasm/twitching sensation, EKG sinus rate 116 without ischemic changes so doubt ACS, no FH sudden cardiac , no other risks factors for PE and no SOB. Most likely muscular pain. Plan: -pain control -d/c with return precautions, refer to PMD for f/u, counselled on decreasing caffeine intake This clinical encounter is taking place during a federal and state health care emergency attributable to the novel [place] Virus pandemic. The [place] of the Department of Health and Human Services has declared, pursuant to the Public Health Service Act 319F-3 (42 U.S.C. 247d-6d), that a covered persons activities related to medical countermeasures against COVID-19 will be immune from liability under Federal and State law. Discharge - Discharge Information Problems reviewed: Yes Clinical Impression/Diagnosis: Chest pain Qualifiers: Chest pain type: unspecified Qualified Code(s): R07.9 - Chest pain, unspecified Condition: Stable Disposition: HOME - Follow up/Referral - Patient Discharge Instructions - Post Discharge Activity
--- OUTSIDE RECORDS SUMMARY | 2019-11-13 14:27 | XMS ---
:1990 Author Organization [facility] Support Name Relationship Address Phone UE Unavailable Unavailable Unavailable [employer] [place] [address] SHARMILA BECKMAN MOTHER [address] [place] [address] MAJO BECKMAN FATHER [address] [place] [address] SHARMILA BECKMAN Mother [address] [place] [address] Lourdes Crain Unavailable [address] [place] [place] [address] Re-disclosure Warning The records that you are about to access may contain information from federally- assisted alcohol or drug abuse programs. If such information is present, then the following federally mandated warning applies: This information has been disclosed to you from records protected by federal confidentiality rules (42 CFR part 2). The federal rules prohibit you from making any further disclosure of this information unless further disclosure is expressly permitted by the written consent of the person to whom it pertains or as otherwise permitted by 42 CFR part 2. A general authorization for the release of medical or other information is NOT sufficient for this purpose. The Federal rules restrict any use of the information to criminally investigate or prosecute any alcohol or drug abuse patient.The records that you are about to access may contain highly sensitive health information, the redisclosure of which is protected by Article 27-F of the [place] State Public Health law. If you continue you may haveaccess to information: Regarding HIV / AIDS; Provided by facilities licensed or operated by the [facility] Office of Mental Health; or Provided by the [facility] Office for People With Developmental Disabilities. If such information is present, then the following [facility] mandated warning applies: This information has been disclosed to you from confidential records which are protected by state law. State law prohibits you from making any further disclosure of this information without the specific written consent of the person to whom it pertains, or as otherwise permitted by law. Any unauthorized further disclosure in violation of state law may result in a fine or correction sentence or both. A general authorization for the release of medical or other information is NOT sufficient authorization for further disclosure. Allergies and Adverse Reactions Type Description Substance Reaction Status Data Source(s ) No Known Allergies No Known Allergies No known allergies eCW2 (Form (situation) Medical Cent[facility] r & Urgent Care) No Information No Information No Allergy eCW2 ( Form Information Medical Cente r Available & Urgent Care) No Information No Information No Allergy eCW2 ( Form Information Medical Cente r Available & Urgent Care) No Information No Information No Allergy eCW2 ( Form Information Medical Cente r Available & Urgent Care) Encounters Encounter Providers Location Date Indications Data Source(s ) Forme Specialty Forme Urgent 06/16/2018 eCW2 (F orm Medicine - (GM) Care and 12:00:[address] [facility] EDT Ur gent Care) Forme Specialty Forme Urgent 10/19/2017 eCW2 (F orm Medicine - (GM) Care and 12:00:[address] [facility] EDT Ur gent Care) Forme Urgent Care Forme Urgent 09/15/2017 eCW2 (Form and Wellness Care and 12:00:00 [facility] EDT Urgent Ca re) Forme Specialty Forme Urgent 08/19/2017 eCW2 (F orm Medicine - (GM) Care and 12:00:[address] [facility] EDT Ur gent Care) Forme Urgent Care Forme Urgent 07/21/2017 eCW2 (Form and Wellness Care and 12:00:00 AM [facility] EDT Urgent Ca re) Forme Urgent Care Forme Urgent 07/20/2017 eCW2 (Form and Wellness Care and 12:00:00 AM [facility] EDT Urgent Ca re) Forme Urgent Care Forme Urgent 07/20/2017 eCW2 (Form and Wellness Care and 12:00:00 AM [facility] EDT Urgent Ca re) Forme Urgent Care Forme Urgent 07/16/2017 eCW2 (Form and Wellness Care and 12:00:00 AM [facility] EDT Urgent Ca re) Forme Urgent Care Forme Urgent 07/16/2017 eCW2 (Form and Wellness Care and 12:00:00 AM [facility] EDT Urgent Ca re) Forme Specialty Forme Urgent 06/18/2017 eCW2 (F orm Medicine - (GM) Care and 12:00:00 AM [facility] [place] [facility] EDT Ur gent Care) Forme Urgent Care Forme Urgent 05/14/2017 eCW2 (Form and Wellness Care and 12:00:00 AM [facility] EDT Urgent Ca re) Forme Specialty Forme Urgent 04/19/2017 eCW2 (F orm Medicine - (GM) Care and 12:00:[address] [facility] EST Ur gent Care) Forme Urgent Care Forme Urgent 03/19/2017 eCW2 (Form and Wellness Care and 12:00:00 AM [facility] EST Urgent Ca re) Forme Urgent Care Forme Urgent 03/18/2017 eCW2 (Form and Wellness Care and 12:00:00 AM [facility] EST Urgent Ca re) Forme Specialty Forme Urgent 02/18/2017 eCW2 (F orm Medicine - (GM) Care and 12:00:[address] [facility] EST Ur gent Care) Forme Urgent Care Forme Urgent 02/13/2017 eCW2 (Form and Wellness Care and 12:00:00 AM [facility] EST Urgent Ca re) Forme Urgent Care Forme Urgent 01/13/2017 eCW2 (Form and Wellness Care and 12:00:00 AM [facility] EST Urgent Ca re) Forme Urgent Care Forme Urgent 01/13/2017 eCW2 (Form and Wellness Care and 12:00:00 AM [facility] EST Urgent Ca re) Forme Specialty Forme Urgent 12/17/2016 eCW2 (F orm Medicine - (GM) Care and 12:00:[address] [facility] EDT Ur gent Care) Forme Urgent Care Forme Urgent 11/16/2016 eCW2 (Form and Wellness Care and 12:00:00 AM Medical [facility] EDT Urgent Ca re) Forme Specialty Forme Urgent 10/14/2016 eCW2 (F orm Medicine - (GM) Care and 12:00:00 AM [facility] gent Care) Forme Urgent Care Forme Urgent 09/14/2016 eCW2 (Form and Wellness Care and 12:00:00 AM [facility] EDT Urgent Ca re) Forme Specialty Forme Urgent 08/14/2016 eCW2 (F orm Medicine - (GM) Care and 12:00:00 AM [facility] gent Care) Forme Specialty Forme Urgent 07/15/2016 eCW2 (F orm Medicine - (GM) Care and 12:00:00 AM [facility] Ur gent Care) Forme Urgent Care Forme Urgent 07/10/2016 eCW2 (Form and Wellness Care and 12:00:00 AM [facility] EDT Urgent Ca re) Forme Urgent Care Forme Urgent 07/09/2016 eCW2 (Form and Wellness Care and 12:00:00 AM [facility] EDT Urgent Ca re) Immunizations Vaccine Date Status Description Data Source(s) No Known Immunizations completed eCW2 ([facility]) No Known Immunizations completed eCW2 ([facility]) No Known Immunizations completed eCW2 ([facility]) No Known Immunizations completed eCW2 ([facility]) Medications Medication Brand Start Product Dose Route Administrative Pharmacy [facility] Indications Reaction Description Data Name Date Form Instructions Instructions Source(s) Amphetamine Addera 09/15/ active 1 table t in eCW2 aspartate ll 30 2017 the morning (F orm 7.5 MG / MG 12:00: Medical Amphetamine 00 AM Center & Sulfate 7.5 EDT Urgent MG / Care) Dextroamphe tamine saccharate 7.5 MG / Dextroamphe tamine Sulfate 7.5 MG Oral Tablet [Adderall] Adderall 30 MG Amphetamine Addera 07/16/ active 1 table t in eCW2 aspartate ll 30 2017 the morning (F orm 7.5 MG / MG 12:00: Medical Amphetamine 00 AM Center & Sulfate 7.5 EDT Urgent MG / Care) Dextroamphe tamine saccharate 7.5 MG / Dextroamphe tamine Sulfate 7.5 MG Oral Tablet [Adderall] Adderall 30 MG Unknown complet eCW2 Medications ed (Form Medical Center & Urgent Care) Unknown complet eCW2 Medications ed (Form Medical Center & Urgent Care) Insurance Providers Payer name Policy type Policy ID Covered Covered libertarian's Policy P eveline / Coverage libertarian ID relationship to Sams Inf ormation type sams [employer] PPO [id number] 1 [facility] [id number] HEALTH NON CAP Problems, Conditions, and Diagnoses Code Display Name Description Problem Type Effective Data Sour ce(s) Dates I10 Elevated blood Elevated blood Problem 10/14/2016 eCW2 ( Form pressure pressure [facility]:00:[facility] I10 Elevated blood Elevated blood Problem 10/14/2016 eCW2 ( Form pressure pressure 12:00:00 AM [facility]) F90.9 Attention deficit Attention deficit Problem 07/09/2016 eCW2 (Form hyperactivity hyperactivity 12:00:00 AM Medical Center disorder (ADHD), disorder (ADHD), EDT & Urgent Care) unspecified ADHD unspecified ADHD type type F90.9 Attention deficit Attention deficit Problem 07/09/2016 eCW2 (Form hyperactivity hyperactivity 12:00:00 AM Medical Center disorder (ADHD), disorder (ADHD), EDT & Urgent Care) unspecified ADHD unspecified ADHD type type Surgeries/Procedures Procedure Description Date Indications Data Source(s) No Known procedures No Known procedures e CW2 (Form Medical Center & Urgent Care) No Known procedures No Known procedures e CW2 (Form Medical Center & Urgent Care) No Known procedures No Known procedures e CW2 (Form Medical Center & Urgent Care) No Known procedures No Known procedures e CW2 (Form Medical Center & Urgent Care) Social History Code Duration Value Status Description Data Source(s ) Smoking Unknown if ever completed Unknown if ever eCW2 (Form smoked smoked Medical Center & Urgent Care) Smoking Unknown if ever completed Unknown if ever eCW2 (Form smoked smoked Medical Center & Urgent Care) Smoking Unknown if ever completed Unknown if ever eCW2 (Form smoked smoked Medical Center & Urgent Care) Smoking Unknown if ever completed Unknown if ever eCW2 (Form smoked smoked Medical Center & Urgent Care) Vital Signs ID Date Data Source UNK Name Value Range Interpretation Code Description Data Source(s) Body height 75 [in_us] 75 [in_us] eCW2 ([facility] & Urgen t Care) Patient Treatment Plan of Care Planned Activity Planned Date Details Description Data Source (s) Amphetamine aspartate 7.5 MG 07/16/2017 eCW2 (Form / Amphetamine Sulfate 7.5 MG 12:00:00 AM EDT Medical Center & / Dextroamphetamine Urgent C are) saccharate 7.5 MG / Dextroamphetamine Sulfate 7.5 MG Oral Tablet [Adderall]
--- NOTE | 2019-11-13 15:57 | EKG ---
Test Reason : Blood Pressure : / mmHG Vent. Rate : 114 BPM Atrial Rate : 114 BPM P-R Int : 142 ms QRS Dur : 096 ms QT Int : 330 ms P-R-T Axes : 047 035 029 degrees QTc Int : 454 ms SINUS TACHYCARDIA OTHERWISE NORMAL ECG WHEN COMPARED WITH ECG OF 20-DEC-2018 16:35, NO SIGNIFICANT CHANGE WAS FOUND Confirmed by ARIN PHAN MD ([id number]) on 11/13/2019 3:56:42 PM Referred By: MD FELICIANO Confirmed By:ARIN PHAN MD
== END 2019-11-13 13:29 | disposition home or self-care (01) ==
LOC: FER 12:38
DX: R07.9 Chest pain, unspecified (principal)
CPT/HCPCS: 93005; 99283-25

== ENCOUNTER 2020-09-20 17:52 | Emergency (ER) | payer OTHER ==
[2020-09-20 18:08] VITALS: BP 145/85; PULSE 132; TEMP 100.3; BMI 30.4
[2020-09-20 19:23] LABS: BASO % 4.1 % (0-2.0); EOS % 3.6 % (0-4.5); HEMATOCRIT 50.8 % (35.4-49); HEMOGLOBIN 17.9 GM/dl (11.7-16.9); LYMPH % 12.2 % (8-40); MCH 31.5 pg (25.7-33.7); MCHC 35.2 g/dl (32.0-35.9); MEAN CELL VOLUME 89.5 fl (80-96); MEAN PLT VOLUME 8.1 fl (7.5-11.1); MONO % 8.5 % (3.8-10.2); NEUT % 71.6 % (42.8-82.8); PLATELET COUNT 249 10^3/uL (134-434); RBC 5.67 M/mm3 (4.00-5.60); RDW 13.8 % (11.9-15.9); WHITE BLOOD COUNT 12.3 K/mm3 (4.0-10.8)
[2020-09-20 20:30] LABS: CALCIUM 8.5 mg/dL (8.5-10.1)
[2020-09-20 20:31] LABS: ALBUMIN 3.8 g/dl (3.4-5.0); BLOOD UREA NITROGEN 15.1 mg/dL (7-18)
[2020-09-20 20:34] LABS: CREATININE 1.4 mg/dL (0.55-1.3)
[2020-09-20 20:36] LABS: BILIRUBIN,TOTAL 0.4 mg/dL (0.2-1); TOT PROT 7.2 g/dl (6.4-8.2)
== END 2020-09-20 19:25 | disposition left against medical advice (07) ==
LOC: FER 17:52
DX: M79.10 Myalgia, unspecified site (principal); R50.9 Fever, unspecified; R07.89 Other chest pain; Z11.52 Encounter for screening for COVID-19
CPT/HCPCS: 36415; 80053; 82550; 82553; 84484; 85025; 93005; 99284-25

== ENCOUNTER 2020-11-10 17:47 | Emergency (ER) | payer OTHER ==
[2020-11-10 18:09] VITALS: BP 151/103; PULSE 110; TEMP 98.9; BMI 29.2
[2020-11-10] MEDS ORDERED: ACETAMINOPHEN 500 MG TABLET (FP) PO ONE (18:20)
[2020-11-10] MEDS ORDERED: ACETAMINOPHEN 1000 MG/100 ML VIAL (NON FORMULARY) IVPB ONE (18:30)
[2020-11-10] MEDS ORDERED: SODIUM CHLORIDE 0.9% 1000 ML INFUS.BAG IV ONE ×2 (18:34→19:03)
[2020-11-10] MEDS ORDERED: SODIUM CHLORIDE 0.9% 500 ML INFUS.BAG IV ONE (18:40)
[2020-11-10 18:58] LABS: HEMATOCRIT 54.9 % (35.4-49); HEMOGLOBIN 18.4 GM/dl (11.7-16.9); MCH 30.7 pg (25.7-33.7); MCHC 33.5 g/dl (32.0-35.9); MEAN CELL VOLUME 91.7 fl (80-96); PLATELET COUNT 270 10^3/uL (134-434); RBC 5.98 M/mm3 (4.00-5.60); RDW 13.9 % (11.9-15.9); WHITE BLOOD COUNT 11.7 K/mm3 (4.0-10.8)
[2020-11-10 19:06] LABS: ALBUMIN 4.2 g/dl (3.4-5.0); BILIRUBIN,TOTAL 0.9 mg/dl (0.2-1); CREATININE 1.3 mg/dl (0.55-1.3); TOT PROT 7.2 g/dl (6.4-8.2)
[2020-11-10] MEDS ORDERED: ACETAMINOPHEN INJECTION 100 ML IVPB ONE (19:15)
== END 2020-11-10 20:35 | disposition home or self-care (01) ==
LOC: FER 17:47
PROC: 3E033GC Introduction of Other Therapeutic Substance into Peripheral Vein, Percutaneous Approach (ICD-10-PCS; principal; 2020-11-10)
DX: R10.84 Generalized abdominal pain (principal); E86.0 Dehydration
CPT/HCPCS: 36415; 80053; 81003; 81015; 83605; 83690; 85027; 87086; 96374; 99284-25; J0131

== ENCOUNTER 2021-09-04 23:03 | Emergency (ER) | payer OTHER ==
[2021-09-04 23:20] VITALS: BP 151/98; PULSE 84; TEMP 98.5; BMI 31.0
== END 2021-09-04 23:31 | disposition home or self-care (01) ==
LOC: FER 23:03
DX: F41.9 Anxiety disorder, unspecified (principal); R07.89 Other chest pain
CPT/HCPCS: 93005; 99284-25